=== PATIENT | male | born 1995 | race African-American/Black ===

== ENCOUNTER 2017-12-10 01:36 | Emergency (ER) | payer MEDICAID ==
[~2017-12-10] VITALS: Ht 177.8 cm; Wt 83.0 kg
[2017-12-10 02:30] VITALS: BP 146/73
== END 2017-12-10 08:41 | disposition left against medical advice (07) ==
LOC: ER 07:53
DX: Z53.21 Procedure and treatment not carried out due to patient leaving prior to being seen by health care provider (principal)

== ENCOUNTER 2017-12-16 01:45 | Emergency (ER) | payer MEDICAID ==
[~2017-12-16] VITALS: Ht 177.8 cm; Wt 82.0 kg
[2017-12-16] MEDS ORDERED: ONDANSETRON HCL 4MG/2ML VIAL IV STA (03:30)
[2017-12-16] MEDS ORDERED: MORPHINE SULFATE 2 MG/ML CPJ (NOT FOR IM USE) IV ONE (03:30)
[2017-12-16] MEDS ORDERED: SODIUM CHLORIDE 0.9% 1,000 ML IV ONE (03:30)
[2017-12-16 04:00] LABS: BASOPHILS % 1.5 % (0.0-2.0); EOSINOPHILS % 0.9 % (0.0-5.0); HEMATOCRIT. 45.1 % (42.0-52.0); LYMPHOCYTES % 31.4 % (20.0-50.0); MEAN CORPUSCULAR HEMOGLOBIN 28.7 pg (28.0-32.0); MONOCYTES % 6.7 % (2.0-8.0); NEUTROPHILS % 59.5 % (40.0-76.0); PLATELET 190 x1000/uL (130-400); RED BLOOD CELL COUNT 5.24 mill/uL (4.7-6.1); RED CELL DISTRIBUTION WIDTH 14.4 % (11.6-14.6)
[2017-12-16 04:07] LABS: CHLORIDE 109 mEq/L (98-107)
[2017-12-16 04:12] LABS: PROTHROMBIN TIME 10.9 sec (9.4-11.6)
[2017-12-16 04:44] LABS: CLARITY URINE TURBID (CLEAR); COLOR URINE YELLOW (YELLOW); KETONES URINE NEGATIVE (NEGATIVE); LEUKOCYTE ESTERASE URINE TRACE (NEGATIVE); NITRITE URINE NEGATIVE (NEGATIVE); OCCULT BLOOD URINE NEGATIVE (NEGATIVE); PH URINE 7.5 (4.5-8.0); PROTEIN URINE NEGATIVE (NEGATIVE); SPECIFIC GRAVITY URINE 1.024 (1.005-1.030)
[2017-12-16 07:30] VITALS: BP 118/76
== END 2017-12-16 07:52 | disposition home or self-care (01) ==
LOC: ER 01:45
DX: K52.9 Noninfective gastroenteritis and colitis, unspecified (principal); Z87.440 Personal history of urinary (tract) infections
CPT/HCPCS: 36415; 74176; 80053; 81003; 83690; 85025; 85610; 87086; 96361; 96374; 96375; 99285; J2270; J2405; J7030